=== PATIENT | male | born 1985 | race Caucasian/White ===

== ENCOUNTER 2019-07-26 05:14 | Emergency (ER) | payer MEDICAID ==
[~2019-07-26] VITALS: Ht 188 cm; Wt 107.0 kg
[2019-07-26 05:15] VITALS: BP_SYST 149
--- NOTE | 2019-07-26 05:15 | NUR ---
Patient triaged and placed in waiting room. VSS and patient appears in no acute distress at this time. Accompanied by SELF, awaiting available bed, and MD notified of need for MSE.
--- NOTE | 2019-07-26 07:43 | NUR ---
Patient to ER bed 5 to gown for evaluation. Side rails up. Report given to Hernandez MAR.
--- NOTE | 2019-07-26 08:00 | NUR ---
ER at bedside examining patient.
[2019-07-26] MEDS ORDERED: HALOPERIDOL LACTATE 5 MG/ML VIAL IM ONE (08:30)
[2019-07-26] MEDS ORDERED: LORazepam 2 MG/ML VIAL IM ONE (08:30)
[2019-07-26] MEDS ORDERED: cefTRIAXone 250 MG VIAL IM ONE (10:15)
[2019-07-26] MEDS ORDERED: AZITHROMYCIN 250 MG TABLET PO ONE (10:15)
[2019-07-26] MEDS ORDERED: LIDOCAINE 1% 10 MG/ML, 20 ML MDV INJ ONE (10:30)
[2019-07-26 11:20] VITALS: BP_SYST 115
--- NOTE | 2019-07-26 11:20 | NUR ---
Patient given written and verbal discharge instructions and verbalizes understanding. ER MD discussed with patient the results and treatment provided. Patient in stable condition. ID arm band removed. Patient educated on pain management and to follow up with PMD. Pain Scale 0 Opportunity for questions provided and answered. Medication side effect fact sheet provided.
[2019-07-28 01:07] LABS: CHLAMYDIA TRACHOMATIS NAA Negative (Negative); NEISSERIA GONORRHOEAE NAA Negative (Negative)
== END 2019-07-26 11:20 | disposition home or self-care (01) ==
LOC: SED 05:14
DX: F31.9 Bipolar disorder, unspecified (principal); F20.9 Schizophrenia, unspecified; Z11.3 Encounter for screening for infections with a predominantly sexual mode of transmission
CPT/HCPCS: 87491; 87591; 96372; 99283; J0696; J1630; J2001; J2060; Q0144